=== PATIENT | female | born 1960 | race Caucasian/White ===

== ENCOUNTER 2017-09-26 20:13 | Emergency (ER) | payer OTHER ==
[~2017-09-26] VITALS: Ht 165.1 cm; Wt 76.2 kg
[2017-09-26] MEDS ORDERED: LEVOTHYROXINE125 MCG PO (20:27)
[2017-09-26] MEDS ORDERED: LISINOPRIL30 MG PO (20:27)
--- NOTE | 2017-09-28 21:43 | EKG ---
[facility] [address] [place], [place] [address] Signed Normal sinus rhythm Possible Left atrial enlargement Incomplete right bundle branch block Septal infarct , age undetermined Abnormal ECG No previous ECGs available Confirmed by JOSHUA GONZALES MD ([id number] on 09/28/2017 9:43:15 PM Electronically Signed By: JOSHUA GONZALES MD 09/28/17 2143 PATIENT NAME: MICHAEL GEE Electrocardiogram DATE OF : 62 PHYSICIAN: JOSHUA GONZALES MD REPORT #: [id number] REPORT IS CONFIDENTIAL AND NOT TO BE RELEASED WITHOUT AUTHORIZATION
== END 2017-09-26 21:56 | disposition home or self-care (01) ==
LOC: ED 20:13
DX: R00.2 Palpitations (principal); I10 Essential (primary) hypertension; F17.200 Nicotine dependence, unspecified, uncomplicated; Z79.899 Other long term (current) drug therapy
CPT/HCPCS: 80053; 83735; 84484; 85025; 93005; 93010; 99284

== ENCOUNTER 2019-04-19 14:34 | Emergency (ER) | payer OTHER ==
[~2019-04-19] VITALS: Ht 165.1 cm; Wt 69.4 kg
[~2019-04-19 14:34] MED LIST: LEVOTHYROXINE125 MCG PO; LISINOPRIL30 MG PO
[2019-04-19] MEDS ORDERED: NORCO 5-325 TA1 EACH PO (17:46)
[2019-04-19] MEDS ORDERED: CYCLOBENZAPRINE10 MG PO (17:46)
== END 2019-04-19 18:24 | disposition home or self-care (01) ==
LOC: ED 14:34
DX: M43.6 Torticollis (principal); F17.200 Nicotine dependence, unspecified, uncomplicated; I10 Essential (primary) hypertension; Z79.899 Other long term (current) drug therapy
CPT/HCPCS: 96372; 99283-25; J1885

== ENCOUNTER 2020-04-20 14:27 | Emergency (ER) | payer OTHER ==
[~2020-04-20] VITALS: Ht 165.1 cm; Wt 70.8 kg
[~2020-04-20 14:27] MED LIST changes: +CYCLOBENZAPRINE10 MG PO; +NORCO 5-325 TA1 EACH PO
[2020-04-20] MEDS ORDERED: ASPIR-TRIN325 MG PO (15:13)
[2020-04-20] MEDS ORDERED: CIPRO500 MG PO (17:28)
[2020-04-20] MEDS ORDERED: FLAGYL500 MG PO (17:28)
[2020-04-20] MEDS ORDERED: ONDANSETRON ODT8 MG PO (17:28)
== END 2020-04-20 19:46 | disposition home or self-care (01) ==
LOC: ED 14:27
DX: K57.92 Diverticulitis of intestine, part unspecified, without perforation or abscess without bleeding (principal); F17.200 Nicotine dependence, unspecified, uncomplicated; Z79.899 Other long term (current) drug therapy; Z79.82 Long term (current) use of aspirin
CPT/HCPCS: 74177; 80053; 81001; 85025; 96361; 99284-25; J0744; J1885; J7030; Q9967

== ENCOUNTER 2023-01-15 14:25 | Emergency (ER) | payer OTHER ==
[~2023-01-15] VITALS: Ht 165.1 cm; Wt 67.5 kg
[~2023-01-15 14:25] MED LIST changes: +ASPIR-TRIN325 MG PO; +CIPRO500 MG PO; +FLAGYL500 MG PO; +ONDANSETRON ODT8 MG PO
[2023-01-15 15:44] VITALS: BP 162/88
== END 2023-01-15 15:44 | disposition home or self-care (01) ==
LOC: ED 14:25
DX: S09.90XA Unspecified injury of head, initial encounter (principal); R20.2 Paresthesia of skin; E06.3 Autoimmune thyroiditis; F17.200 Nicotine dependence, unspecified, uncomplicated; Z79.82 Long term (current) use of aspirin; Z79.899 Other long term (current) drug therapy; W22.8XXA Striking against or struck by other objects, initial encounter; Y92.89 Other specified places as the place of occurrence of the external cause; Y99.0 Civilian activity done for income or pay
CPT/HCPCS: 99283